=== PATIENT | female | born 1990 | race Caucasian/White ===

== ENCOUNTER 2018-11-14 11:25 | Emergency (ER) | payer SELFPAY ==
[2018-11-14] MEDS ORDERED: Ondansetron PF 4 MG/2 ML Vial ONE (12:12)
[2018-11-14] MEDS ORDERED: Fentanyl 100 MCG/2 ML VIAL ONE (12:19)
[2018-11-14 12:34] LABS: Bilirubin Negative (Negative); Blood, Urine Negative (Negative); Clarity CLEAR (Clear); Glucose, Urine (Dipstick) Negative (Negative); Leukocyte Trace (Negative); Nitrite Negative (Negative); Protein, Urine (Dipstick) Negative (Neg-Trace); Specific Gravity, Urine 1.011 (1.002-1.036); Urobilinogen 0.2 mg/dL (0.2-1.0)
[2018-11-14 12:35] LABS: Hemoglobin 15.7 g/dL (12.0-16.0); Mean Corpuscular HGB CONC 33.6 g/dL (32.0-36.0); Mean Corpuscular Hemoglobin 30.3 pg (27.0-31.0); Mean Corpuscular Volume 90.1 fL (78.0-98.0); Mean Platelet Volume 7.7 fL (7.4-10.4); Platelet Count 375 thou/uL (130-400); RBC Distribution Width 11.5 % (11.5-14.5); Red Blood Cell (RBC) Count 5.19 mill/uL (4.20-5.40); White Blood Cell (WBC) Count 18.5 thou/uL (4.8-10.8)
[2018-11-14 12:36] LABS: Bacteria/HPF None Seen HPF (None Seen); Hyaline Casts/LPF 0-3 HYALINE CAST LPF (0-3 Hyaline); Pathc Cast-AUWi Flag 0.27 (0-2.49); RBC/HPF 0-3 HPF (0-3); Squamous Epithelial 0-3 HPF (0-3)
[2018-11-14 12:39] LABS: Pregnancy Test - Urine (BHCG) Negative (Negative); Pregu Control Background? CLEAR/WHITE (CLR/WHITE); Pregu Control Bar Appear? YES (CONTROL BAR); Specific Gravity 1.011 (1.002-1.036)
[2018-11-14 12:53] LABS: ALT (SGPT) 58 U/L (8-55); AST (SGOT) 36 U/L (5-34); Albumin 4.4 g/dL (3.5-5.0); Alkaline Phosphatase 96 U/L (40-150); Anion Gap 13 mmol/L (10-20); BUN (Urea Nitrogen) 6 mg/dL (7.0-18.7); Bilirubin, Total 1.1 mg/dL (0.2-1.2); Calc. Creatinine Clearance 0 mL/min (70-130); Calcium 9.8 mg/dL (7.8-10.44); Carbon Dioxide 25 mmol/L (22-29); Chloride 102 mmol/L (98-107); Estimated GFR-MDRD 85; Globulin 3.5 g/dL (2.4-3.5); Glucose 80 mg/dL (70-105); Lipase 33 U/L (8-78); Potassium 3.6 mmol/L (3.5-5.1); Protein, Total 7.9 g/dL (6.0-8.3); Sodium 136 mmol/L (136-145)
[2018-11-14 13:08] LABS: Band 13 % (5-11); Lymphocytes 13 % (21-51); MDiff Complete? YES; Monocytes 6 % (0-10); Neutrophil 68 % (42-75); RBC Morphology Normal
[2018-11-14] MEDS ORDERED: ISOVUE-370 76%-LOCM 1 ML ONE (13:45)
--- NOTE | 2018-11-14 14:02 | CT ---
CT ABDOMEN AND PELVIS WITH IV CONTRAST: HISTORY: Abdominal pain. COMPARISON: 06/14/2016 FINDINGS: The lung bases are clear. The liver, spleen, pancreas, adrenal glands, and kidneys are normal. No c alcified gallstones are seen. No free air, free fluid, or lymphadenopathy is noted in the abdomen or pelvis. Uterus and ovaries are visualized. The small bowel loops are not abnormally dilated. A no rmal appearing appendix is present. No acute osseous abnormalities are seen. IMPRESSION: No evidence of acute process. POS: OFF
[2018-11-14] MEDS ORDERED: Ketorolac Tromethamine 30 MG/ML VIAL ONE (14:20)
--- NOTE | 2018-11-14 15:59 | ULT ---
PELVIC ULTRASOUND INCLUDING TRANSABDOMINAL, TRANSVAGINAL, AND VASCULAR DUPLEX WITH COLOR AND SPECTRAL DOPPLER IMAGIN11/14/18 HISTORY: Abdominal pain. FINDINGS: The uterus measures 7.8 x 3.5 x 4.9 cm. Endometrium is 0.7 cm. Right ovary measures 1.9 x 2.5 x 2.8 c m with multiple follicles. The left ovary measures 2.2 x 2.8 x 3.5 cm with a 1.4 x 1.5 cm diameter sl ightly complicated follicle cyst. Nabothian cysts noted in the cervix. IMPRESSION: No significant acute process. A 1.4 x 1.5 cm slightly complicated appearing left ovarian follicle cys t. POS: [facility]PC
== END 2018-11-14 16:17 | disposition home or self-care (01) ==
LOC: ERS 11:25
DX: B34.9 Viral infection, unspecified (principal); R10.30 Lower abdominal pain, unspecified; E03.9 Hypothyroidism, unspecified; F41.9 Anxiety disorder, unspecified; F17.210 Nicotine dependence, cigarettes, uncomplicated; Z79.899 Other long term (current) drug therapy
CPT/HCPCS: 74177; 76856; 80053; 81003; 81015; 81025; 83690; 85025; 87804; 96361; 96374; 96375; J1885; J2405; J3010; Q9966

== ENCOUNTER 2021-04-14 17:40 | Emergency (ER) | payer SELFPAY ==
[2021-04-15 01:29] LABS: SARS-CoV-2 PCR by NAA DETECTED (NotDetected)
== END 2021-04-14 18:51 | disposition home or self-care (01) ==
LOC: ERS 17:40
DX: U07.1 COVID-19 (principal); Z21 Asymptomatic human immunodeficiency virus [HIV] infection status; F17.210 Nicotine dependence, cigarettes, uncomplicated
CPT/HCPCS: 99283; U0003; U0005